=== PATIENT | female | born 1980 | race Caucasian/White ===

== ENCOUNTER 2016-10-27 15:29 | Emergency (ER) | payer OTHER ==
[2016-10-27 16:08] VITALS: BP 112/75
--- NOTE | 2016-10-27 16:18 | UC ---
Eye Complaint HPI - HPI Summary HPI Summary: complaint of left eye irritation thinks she got some hair or foregin object in her left eye tried flushing her eyes and crying hasn't helped doesn't waer contacts feels like there is sand in her eye no discharge from her left eye denies vision changes - History of Current Complaint Chief Complaint: UCEye Stated Complaint: LEFT EYE COMPLAINT Time Seen by Provider: 10/27/16 15:57 Hx Obtained From: Patient Hx Last Menstrual Period: Aug 2015- per pt, menses irregular Location of Injury: Conjunctiva Character: Foreign Body Sensation Aggravating Factor(s): Nothing Alleviating Factor(s): Nothing Related History: Foreign Body - Allergies/Home Medications Allergies/Adverse Reactions: Allergies Allergy/AdvReac Type Severity Reaction Status Date / Time Sulfamethoxazole Allergy Hives Verified 10/27/16 15:59 w/Trimethoprim [From Bactrim] Home Medications: Home Medications Cholecalciferol [Vitamin D3 Ultra Strength] 1 cap WEEKLY 10/27/16 [History Confirmed 10/27/16] PMH/Surg Hx/FS Hx/Imm Hx Previously Healthy: Yes Endocrine History Of: Denies: Diabetes, Thyroid Disease Cardiovascular History Of: Denies: Cardiac Disorders, Hypertension, Pacemaker/ICD Respiratory History Of: Denies: COPD, Asthma GI/ History Of: Denies: Ulcer, Renal Disease - Surgical History Surgical History: Yes Surgery Procedure, Year, and Place: ovarian cyst removal,. right knee surgery. varicose vein surgery BILATERAL LEGS. 12/2013 BARBED WIRE SURGICALLY REMOVED FROM UNDER LEFT KNEE - Family History Known Family History: Negative: Cardiac Disease, Hypertension, Diabetes - Social History Occupation: Employed Full-time Lives: With Family Alcohol Use: None Substance Use Type: None Smoking Status (MU): Never Smoked Tobacco - Immunization History Most Recent Influenza Vaccination: NONE Most Recent Tetanus Shot: UTD Most Recent Pneumonia Vaccination: N/A Review of Systems Constitutional: Negative Skin: Negative Eyes: Other ENT: Negative Respiratory: Negative Cardiovascular: Negative Gastrointestinal: Negative Genitourinary: Negative Motor: Negative Neurovascular: Negative Musculoskeletal: Negative Neurological: Negative Psychological: Negative All Other Systems Reviewed And Are Negative: Yes Physical Exam Triage Information Reviewed: Yes Appearance: No Pain Distress, Well-Nourished Vital Signs: Initial Vital Signs Temp 98.5 F 10/27/16 16:00 Pulse 95 10/27/16 16:00 Resp 18 10/27/16 16:00 BP 112/75 10/27/16 16:00 Pulse Ox 98 10/27/16 16:00 Vital Signs Reviewed: Yes Eyes: Positive: Other: - left eye- under flouriscene- abrasion on medial side of sclera- no foreign objects seen ENT: Positive: Pharynx normal, TMs normal Neck: Positive: No Lymphadenopathy Respiratory: Positive: Lungs clear, Normal breath sounds, No respiratory distress Abdomen Description: Positive: Nontender, Soft Bowel Sounds: Positive: Present Musculoskeletal: Positive: No Edema Psychological Exam: Normal Skin Exam: Normal Eye Complaint Course/Dx - Course Course Of Treatment: exam completed. no foreign objects seen- abrasion on medial side of sclera. will start erythromycin otiment and followup with Dr Hernadez - Differential Dx/Diagnosis Differential Diagnosis/HQI/PQRI: Corneal Abrasion, Foreign Body Provider Diagnoses: left eye- abrasion sclera Discharge - Discharge Plan Condition: Stable Disposition: HOME Prescriptions: Erythromycin OPTH OINT* 1 applic LEFT EYE TID #1 ophth.oint Patient Education Materials: Corneal Abrasion (ED) Referrals: Juan Carlos Winston MD [Primary Care Provider] - Manju Hernadez MD [Medical Doctor] - Additional Instructions: Please start antibiotic ointment as directed call Dr Enamorado for further evaluation and treatment Increase fluids and rest Take acetaminophen or ibuprofen for fever or pain Please review your discharge instructions. If your symptoms do not improve please call your primary care provider or return to urgent care
== END 2016-10-27 16:50 | disposition home or self-care (01) ==
LOC: UCCORT 15:29
DX: S05.02XA Injury of conjunctiva and corneal abrasion without foreign body, left eye, initial encounter (principal); X58.XXXA Exposure to other specified factors, initial encounter; Y93.9 Activity, unspecified; Y92.9 Unspecified place or not applicable; Z88.2 Allergy status to sulfonamides
CPT/HCPCS: 99212; G0463

== ENCOUNTER 2017-02-19 12:12 | Emergency (ER) | payer OTHER ==
--- NOTE | 2017-02-19 13:48 | UC ---
Skin Complaint HPI - HPI Summary HPI Summary: 37 YEAR OLD FEMALE PRESENTS WITH COMPLAINS OF LESION ON THE BACK OF HER LEFT HAND - History of Current Complaint Time Seen by Provider: 02/19/17 13:48 Stated Complaint: SKIN COMPLAINT LEFT HAND Hx Obtained From: Patient Hx Last Menstrual Period: Aug 2015- per pt, menses irregular Onset/Duration: Sudden Onset Onset Severity: Moderate Current Severity: Moderate Pain Scale Used: 0-10 Numeric - 5 Character: Pruritus, Redness Aggravating: Nothing Alleviating: Nothing - Allergy/Home Medications Allergies/Adverse Reactions: Allergies Allergy/AdvReac Type Severity Reaction Status Date / Time Sulfamethoxazole Allergy Hives Verified 02/19/17 13:55 w/Trimethoprim [From Bactrim] Review of Systems Constitutional: Negative Skin: Rash - BACK OF LEFT HAND Eyes: Negative ENT: Negative Respiratory: Negative Cardiovascular: Negative Gastrointestinal: Negative Genitourinary: Negative Motor: Negative Neurovascular: Negative Musculoskeletal: Negative Neurological: Negative Psychological: Negative All Other Systems Reviewed And Are Negative: Yes PMH/Surg Hx/FS Hx/Imm Hx Previously Healthy: Yes - Surgical History Surgical History: Yes Surgery Procedure, Year, and Place: ovarian cyst removal,. right knee surgery. varicose vein surgery BILATERAL LEGS. 12/2013 BARBED WIRE SURGICALLY REMOVED FROM UNDER LEFT KNEE - Family History Known Family History: Negative: Cardiac Disease, Hypertension, Diabetes - Social History Alcohol Use: None Substance Use Type: None Smoking Status (MU): Never Smoked Tobacco - Immunization History Most Recent Influenza Vaccination: NONE Most Recent Tetanus Shot: UTD Most Recent Pneumonia Vaccination: N/A Physical Exam Triage Information Reviewed: Yes Eye Exam: Normal ENT Exam: Normal Dental Exam: Normal Neck exam: Normal Neck: Positive: 1 Respiratory Exam: Normal Cardiovascular Exam: Normal Abdominal Exam: Normal Musculoskeletal Exam: Normal Neurological Exam: Normal Psychological Exam: Normal Skin: Positive: rashes - BACK OF LEFT HAND Course/Dx - Diagnoses Provider Diagnoses: RASH BACK OF LEFT HAND. RINGWORM ON THE BACK LEFT HAND Discharge - Discharge Plan Condition: Stable Disposition: HOME Prescriptions: Cephalexin CAP* [Keflex CAP*] 500 mg PO TID #30 cap Terbinafine HCl (Topical) [Lamisil At] 1 % TOPICAL BID #2 tube Triamcinolone 0.1% CREAM (NF) [Kenalog 0.1% Cream (NF)] 1 applic TOPICAL TID PRN #90 gm PRN Reason: Itching Patient Education Materials: Acute Rash (ED), Skin Yeast Infection (ED) Referrals: Juan Carlos Winston MD [Primary Care Provider] -
[2017-02-19 14:00] VITALS: BP 102/76
== END 2017-02-19 14:22 | disposition home or self-care (01) ==
LOC: UCCORT 12:12
DX: B35.2 Tinea manuum (principal); R21 Rash and other nonspecific skin eruption; Z88.2 Allergy status to sulfonamides
CPT/HCPCS: 99212; G0463

== ENCOUNTER 2018-09-15 10:22 | Emergency (ER) | payer OTHER ==
[2018-09-15 10:38] VITALS: BP 133/89
--- NOTE | 2018-09-15 10:57 | UC ---
FLU HPI - HPI Summary HPI Summary: 38-year-old female presents with onset of fever, chills, body aches, malaise, nasal congestion, runny nose, sore throat, and a dry nonproductive cough on 09/11. States the body aches and fever have subsided at this time. He continues to have mild sore throat, nasal congestion, and a nonproductive cough. States her daughter tested positive for flu yesterday. She did not receive her flu shot this year. Denies ear pain, dysphagia, chest pain, shortness of breath, abdominal pain, nausea, vomiting, or diarrhea. - History of Current Complaint Chief Complaint: UCGeneralIllness Stated Complaint: FLU SYMPTOMS Time Seen by Provider: 09/15/18 10:44 Hx Obtained From: Patient Hx Last Menstrual Period: 4 years Pain Intensity: 0 - Allergy/Home Medications Allergies/Adverse Reactions: Allergies Allergy/AdvReac Type Severity Reaction Status Date / Time sulfamethoxazole Allergy Hives Verified 09/15/18 10:36 [From Bactrim] trimethoprim [From Bactrim] Allergy Hives Verified 09/15/18 10:36 Home Medications: Home Medications NK [No Home Medications Reported] 09/15/18 [History Confirmed 09/15/18] PMH/Surg Hx/FS Hx/Imm Hx Previously Healthy: Yes - Denies significant PMH - Surgical History Surgical History: Yes Surgery Procedure, Year, and Place: ovarian cyst removal,. right knee surgery. varicose vein surgery BILATERAL LEGS. 12/2013 BARBED WIRE SURGICALLY REMOVED FROM UNDER LEFT KNEE - Family History Known Family History: Positive: Non-Contributory - Social History Occupation: Employed Part-time Lives: With Family Alcohol Use: None Substance Use Type: None Smoking Status (MU): Never Smoked Tobacco - Immunization History Most Recent Influenza Vaccination: NONE Most Recent Tetanus Shot: UTD Most Recent Pneumonia Vaccination: N/A Review of Systems All Other Systems Reviewed And Are Negative: Yes Constitutional: Positive: Fever, Chills, Fatigue Skin: Negative: Rash Eyes: Negative: Drainage, Eye Redness ENT: Positive: Sore Throat, Nasal Discharge, Sinus Congestion. Negative: Ear Ache, Sinus Pain/Tenderness Respiratory: Positive: Cough. Negative: Shortness Of Breath Cardiovascular: Negative: Palpitations, Chest Pain Gastrointestinal: Negative: Abdominal Pain, Vomiting, Diarrhea, Nausea Genitourinary: Positive: Negative Musculoskeletal: Positive: Myalgia Neurological: Positive: Headache Is Patient Immunocompromised?: No Physical Exam - Summary Physical Exam Summary: GENERAL APPEARANCE: Well developed, well nourished, alert and cooperative, and appears to be in no acute distress. EYES: Conjunctiva clear. No drainage. Vision is grossly intact. EARS: External auditory canals and tympanic membranes clear, hearing grossly intact. NOSE: Mild-moderate nasal congestion. No nasal discharge. THROAT: Mild pharyngeal erythema. No tonsilar inflammation, swelling, exudate, or lesions. Uvula midline. Oral cavity normal. Teeth and gingiva in good general condition. NECK: Neck supple, non-tender without lymphadenopathy. CARDIAC: Normal S1 and S2. No S3, S4 or murmurs. Rhythm is regular. There is no peripheral edema, cyanosis or pallor. Extremities are warm and well perfused. Capillary refill is less than 2 seconds. Peripheral pulses intact. LUNGS: Clear to auscultation without rales, rhonchi, wheezing or diminished breath sounds. Dry, non-productive cough. ABDOMEN: Positive bowel sounds. Soft, nondistended, nontender. No guarding or rebound. No masses or hepatosplenomegally. MUSKULOSKELETAL: ROM intact to all extremities. No joint erythema or tenderness. Normal muscular development. Normal gait. SKIN: Skin normal color, texture and turgor with no lesions or eruptions. Triage Information Reviewed: Yes Vital Signs: Initial Vital Signs Temp 98.5 F 09/15/18 10:34 Pulse 93 09/15/18 10:34 Resp 16 09/15/18 10:34 BP 133/89 09/15/18 10:34 Pulse Ox 97 09/15/18 10:34 Vital Signs Reviewed: Yes Flu Course/Dx - Course Course Of Treatment: 38-year-old female presents with onset of fever, chills, body aches, malaise, nasal congestion, runny nose, sore throat, and a dry nonproductive cough on 09/11. States the body aches and fever have subsided at this time. He continues to have mild sore throat, nasal congestion, and a nonproductive cough. States her daughter tested positive for flu yesterday. She did not receive her flu shot this year. Denies ear pain, dysphagia, chest pain, shortness of breath, abdominal pain, nausea, vomiting, or diarrhea. Afebrile. VSS. Exam reveals an adult female in no acute distress with mild-moderate nasal congestion, mild pharyngeal erythema, a dry, non-productive cough, clear bilateral breath sounds, and otherwise unremarkable exam. Based on her history exam she likely has influenza however based on duration of her symptoms she has not a candidate to start Tamiflu at this time. Recommending symptomatic treatment. She is to follow-up with her primary care provider in 5 days if symptoms do not improve. Anticipatory guidance and warning symptoms were reviewed with the patient. Verbalizes understanding and agrees of care. - Differential Dx/Diagnosis Differential Diagnosis/HQI/PQRI: Bronchitis, Influenza, Pneumonia, Upper Respiratory Infection Provider Diagnosis: Influenza Discharge - Sign-Out/Discharge Documenting (check all that apply): Patient Departure All imaging exams completed and their final reports reviewed: No Studies - Discharge Plan Condition: Stable Disposition: HOME Patient Education Materials: Influenza (ED) Forms: *Work Release Referrals: Belgica Davis PA [Primary Care Provider] - 5 Days (If symptoms do not improve.) Additional Instructions: Your history and exam are consistent with influenza. Influenza typically runs its course over 7-10 days with the first 3-5 days being the worst of symptoms. Get plenty of rest. Drink plenty of fluids to avoid dehydration especially if you are running any fever. Take over the counter acetaminophen (Tylenol) or ibuprofen (Advil, Motrin) according to directions as needed for pain or fever. Use salt water gargles several times a day if you have a sore throat. You may also use Chloraseptic spray or Cepacol lonzenges according to directions which contain a numbing medication and can provide some temporary relief from your sore throat. Follow up with your primary care provider in 5 days if symptoms persist. Seek immediate medical attention in the emergency room if you have fever greater than 100.5 F despite taking acetaminophen or ibuprofen, have chest pain , difficulty breathing, are unable to swallow, or have any worsening of symptoms. - Billing Disposition and Condition Condition: STABLE Disposition: Home - Attestation Statements Provider Attestation: Per institutional requirements, I have reviewed the chart, however, I was not consulted specifically or made aware of this patient by the midlevel provider. I did not personally evaluate, interact with , or disposition this patient.
== END 2018-09-15 11:13 | disposition home or self-care (01) ==
LOC: UCCORT 10:22
DX: J11.1 Influenza due to unidentified influenza virus with other respiratory manifestations (principal); Z88.1 Allergy status to other antibiotic agents; Z88.2 Allergy status to sulfonamides
CPT/HCPCS: 99211; G0463